=== PATIENT | female | born 1990 | race Caucasian/White ===

== ENCOUNTER 2020-08-24 14:00 | Emergency (ER) | payer MEDICAID ==
--- NOTE | 2020-08-24 15:30 | ER Document Report ---
ED Medical Screen (RME) - General Chief Complaint: Vaginal Bleeding Stated Complaint: VAGINAL BLEEDING Time Seen by Provider: 08/24/20 15:23 Notes: HPI: 30-year-old female presenting with heavy vaginal bleeding with clots today. States it started last night and has continued through today. Had an irregular menstrual cycle this month. States she had her tubes tied several years ago but does not know why she is having such significant heavy bleeding this time as this is not normal for her menstrual cycles PHYSICAL EXAMINATION: exam deferred in triage I have greeted and performed a rapid initial assessment of this patient. A com prehensive ED assessment and evaluation of the patient, analysis of test results and completion of medical decision making process will be conducted by an additional ED providers. - Related Data Allergies/Adverse Reactions: erythromycin base Allergy (Verified 08/24/20 15:23) Home Medications: suboxine Past Medical History - Social History Chew tobacco use (# tins/day): No Frequency of alcohol use: None Drug Abuse: None Physical Exam - Vital signs Vitals: Temp Pulse Resp BP Pulse Ox 99.6 F 102 H 20 136/86 H 100 08/24/20 14:06 08/24/20 14:06 08/24/20 14:06 08/24/20 14:06 08/24/20 14:06 Course - Vital Signs Vital signs: Temp Pulse Resp BP Pulse Ox 99.6 F 102 H 20 136/86 H 100 08/24/20 14:06 08/24/20 14:06 08/24/20 14:06 08/24/20 14:06 08/24/20 14:06
[2020-08-24 16:29] LABS: ABSOLUTE BASOPHILS # (AUTO) 0.1 10^3/uL (0.0-0.2); ABSOLUTE EOSINOPHILS # (AUTO) 0.1 10^3/uL (0.0-0.6); ABSOLUTE LYMPHOCYTES (AUTO) 1.6 10^3/uL (0.5-4.7); ABSOLUTE MONOCYTES (AUTO) 0.3 10^3/uL (0.1-1.4); ABSOLUTE NEUT (AUTO) 3.7 10^3/uL (1.7-8.2); BASOPHILS % (AUTO) 1.1 % (0-2); EOSINOPHILS % (AUTO) 1.6 % (0-6); LYMPHOCYTES % (AUTO) 28.1 % (13-45); MEAN CORPUSCULAR HGB CONC 34.1 g/dL (32.0-36.0); MEAN CORPUSCULAR VOLUME 88 fl (80-97); MONOCYTES % (AUTO) 5.8 % (3-13); PLATELET COUNT 198 10^3/uL (150-450); RED BLOOD COUNT 4.65 10^6/uL (3.72-5.28); RED CELL DISTRIBUTION WIDTH 13.3 % (11.5-14.0); SEGMENTED NEUTROPHILS % (AUTO) 63.4 % (42-78); TOTAL CELLS COUNTED % (AUTO) 100 %; WHITE BLOOD COUNT 5.8 10^3/uL (4.0-10.5)
--- NOTE | 2020-08-24 16:40 | RADIOLOGY REPORT (SQ) ---
EXAM DESCRIPTION: U/S NON OB PEL W/DOPPLER IMAGES COMPLETED DATE/TIME: 08/24/2020 4:22 pm REASON FOR STUDY: heavy vag bleed COMPARISON: None. TECHNIQUE: Dynamic and static grayscale images acquired of the pelvis via transabdominal approach an d recorded on PACS. Additional selected color Doppler and spectral images recorded. LIMITATIONS: None. FINDINGS: UTERUS: Contour normal. No mass. ENDOMETRIAL STRIPE: No focal or generalized thickening. No masses. CERVIX: No nabothian cysts. RIGHT OVARY AND DOPPLER: Normal size. No worrisome masses. Normal arterial vascular flow without evid ence for torsion. LEFT OVARY AND DOPPLER: Ovary not visualized. FREE FLUID: Trace endometrial free fluid. OTHER: No other significant finding. MEASUREMENTS: UTERUS: 8.6 x 4.3 x 5.3 cm ENDOMETRIAL STRIPE: 6 mm RIGHT OVARY: 3.1 x 1.8 x 1.5 cm. LEFT OVARY: Not visualized. IMPRESSION: Trace endometrial free fluid. Nonvisualized left ovary. TECHNICAL DOCUMENTATION: JOB ID: [id number] [place]-72 2010 [employer]- All Rights Reserved Rev-02/17 Reading location - IP/workstation name: [employer]
[2020-08-24 16:48] LABS: APPEARANCE,URINE CLEAR; BILIRUBIN,URINE NEGATIVE (NEGATIVE); COLOR,URINE STRAW; GLUCOSE, URINE NEGATIVE (NEGATIVE); KETONES,URINE NEGATIVE (NEGATIVE); LEUKOCYTE ESTERASE,URINE NEGATIVE (NEGATIVE); NITRITE,URINE NEGATIVE (NEGATIVE); PROTEIN,URINE NEGATIVE (NEGATIVE); UROBILINOGEN,URINE NEGATIVE mg/dL (<2.0)
[2020-08-24 16:51] LABS: ALBUMIN 5.2 g/dL (3.5-5.0); ALKALINE PHOSPHATASE 54 U/L (38-126); ANION GAP 11 (5-19); ASPARTATE AMINO TRANSFERASE 30 U/L (14-36); BILIRUBIN,TOTAL 0.4 mg/dL (0.2-1.3); BLOOD UREA NITROGEN 10 mg/dL (7-20); CARBON DIOXIDE 28 mmol/L (22-30); CHLORIDE 101 mmol/L (98-107); GLUCOSE 95 mg/dL (75-110); POTASSIUM 4.3 mmol/L (3.6-5.0); TOTAL PROTEIN 8.2 g/dL (6.3-8.2)
[2020-08-24] MEDS ORDERED: MEDROXYPROGESTERONE ACET 10 MG TABLET PO ONE (17:55)
--- NOTE | 2020-08-24 17:57 | ER Document Report ---
ED GI/ - General Chief Complaint: Vaginal Bleeding Stated Complaint: VAGINAL BLEEDING Time Seen by Provider: 08/24/20 15:23 Notes: HPI: 30-year-old female status post tubal ligation in the past who presents today with some vaginal bleeding that has been irregular starting 3 days ago. Small clots. Patient states she had a normal menstrual period at the normal timing that ended about a week ago. She has not changed her started cont rol medications recently. No other medication changes. Some mild intermittent abdominal cramping without dysuria, fevers, or vomiting. ROS: See HPI All other review of systems reviewed and otherwise negative Reviewed vital signs and nursing note as charted by RN. PHYSICAL EXAM: CONSTITUTIONAL: Alert and oriented and responds appropriately to questions. Well-appearing; well-nourished HEAD: Normocephalic; atraumatic EYES: Sclera is not pale ENT: Normal nose; no rhinorrhea; moist mucous membranes; pharynx without lesions noted NECK: Supple without meningismus; non-tender; no cervical lymphadenopathy, no masses CARD: Regular rate and rhythm; no murmurs; symmetric distal pulses RESP: Normal chest excursion without splinting or tachypnea; breath sounds clear and equal bilaterally ABD/GI: Normal bowel sounds; non-distended; soft, no tenderness to deep palpation of all 4 quadrants of the abdomen including the suprapubic region : With pusher operator present I did perform a pelvic examination showing no obvious external lesions. Blood in the vaginal vault. Cervical os is closed and nontender. BACK: The back appears normal and is non-tender to palpation EXT: No edema SKIN: No acute lesions noted NEURO: CN 2-12 intact; 5/5 bilateral upper and lower extremity strength with sensation intact to light touch PSYCH: The patient's mood and manner are appropriate. Grooming and personal hygiene are appropriate. - Related Data Allergies/Adverse Reactions: erythromycin base Allergy (Verified 08/24/20 15:23) Home Medications: suboxine Past Medical History - Social History Smoking Status: Current Every Day Smoker Chew tobacco use (# tins/day): No Frequency of alcohol use: None Drug Abuse: None Family History: Reviewed & Not Pertinent Patient has homicidal ideation: No Physical Exam - Vital signs Vitals: Temp Pulse Resp BP Pulse Ox 99.6 F 102 H 20 136/86 H 100 08/24/20 14:06 08/24/20 14:06 08/24/20 14:06 08/24/20 14:06 08/24/20 14:06 Course - Re-evaluation Re-evalutation: Given the above history and physical, test, hemoglobin level, and pelvic examination as well as a pelvic ultrasound was ordered. We would like to evaluate for the possibility of ectopic , uterine mass, dysfunctional uterine bleeding, or other acute process. Given the lack of any pain on examination, I do believe torsion to be unlikely. 08/24/20 17:56 pelvic examination as recorded. Hemoglobin as recorded. Ultrasound as recorded. I have provided Provera. Awaiting pelvic exam lab values. 08/24/20 18:14 Labs as recorded. Imaging as recorded. Vital signs stable. Patient will be discharged home with a course of Provera and strict return precautions with follow-up with BOOK EDITOR. - Vital Signs Vital signs: Temp Pulse Resp BP Pulse Ox 99.6 F 102 H 20 136/86 H 100 08/24/20 14:06 08/24/20 14:06 08/24/20 14:06 08/24/20 14:06 08/24/20 14:06 - Laboratory Result Diagrams: 08/24/20 16:13 08/24/20 16:13 Laboratory results interpreted by me: 08/24/20 08/24/20 16:13 16:13 Albumin 5.2 H Urine Blood LARGE H Discharge - Discharge Clinical Impression: Dysfunctional uterine bleeding Condition: Good Disposition: HOME, SELF-CARE Additional Instructions: Come back immediately for any increased pain, weakness or numbness, lightheadedness or dizziness, worsening bleeding, fever, or any other acute problems. Please take the Provera as we have prescribed and please follow-up with your BOOK EDITOR as we have referred you for. Prescriptions: Medroxyprogesterone Acet [Provera 10 Mg Tablet] 10 mg PO DAILY #10 tablet Referrals: ERNIE BOX MD [ACTIVE STAFF] - Follow up as needed
[2020-08-24 18:06] LABS: RBCS (WET MOUNT) 4+ RBCS SEEN; T.VAGINALIS (WET MOUNT) NO TRICHOMONAS SEEN; WBCS (WET MOUNT) RARE WBCS SEEN; YEAST (WET MOUNT) NO YEAST SEEN
[2020-08-24 18:53] VITALS: BP 100/77
[2020-08-24 19:32] LABS: CHLAM PCR NOT DETECTED (NOT DETECT)
== END 2020-08-24 18:51 | disposition home or self-care (01) ==
LOC: EDBD → ER 14:00
DX: N93.8 Other specified abnormal uterine and vaginal bleeding (principal); R10.9 Unspecified abdominal pain; F17.200 Nicotine dependence, unspecified, uncomplicated; Z98.51 Tubal ligation status; Z79.899 Other long term (current) drug therapy; Z88.1 Allergy status to other antibiotic agents
CPT/HCPCS: 99285; 36415; 87210; 84703; 85025; 80053; 81001; 87491; 87591; 76856; 93976; J3490